=== PATIENT | female | born 1995 | race Caucasian/White ===

== ENCOUNTER 2019-01-10 21:56 | Emergency (ER) | payer MEDICAID ==
[~2019-01-10] VITALS: Ht 165.1 cm; Wt 48.0 kg
[2019-01-11 00:47] LABS: CLARITY URINE CLEAR (CLEAR); COLOR URINE YELLOW (YELLOW); KETONES URINE NEGATIVE (NEGATIVE); LEUKOCYTE ESTERASE URINE NEGATIVE (NEGATIVE); NITRITE URINE NEGATIVE (NEGATIVE); OCCULT BLOOD URINE 2+ (NEGATIVE); PROTEIN URINE NEGATIVE (NEGATIVE); SPECIFIC GRAVITY URINE 1.011 (1.005-1.030); UROBILINOGEN URINE 0.2 E.U./dL (0.2-1.0)
[2019-01-11 00:50] LABS: BASOPHILS % 0.5 % (0.0-2.0); EOSINOPHILS % 2.7 % (0.0-5.0); HEMOGLOBIN. 13.4 g/dL (12.0-16.0); LYMPHOCYTES % 27.5 % (20.0-50.0); MEAN CORPUSCULAR HEMOGLOBIN 31.3 pg (28.0-32.0); MEAN CORPUSCULAR VOLUME 91.1 fL (81.0-99.0); MEAN PLATELET VOLUME 7.7 fl (7.4-10.4); MONOCYTES % 10.7 % (2.0-8.0); NEUTROPHILS % 58.6 % (40.0-76.0); PLATELET 292 x1000/uL (130-400); RED BLOOD CELL COUNT 4.28 mill/uL (4.2-5.4); RED CELL DISTRIBUTION WIDTH 13.2 % (11.6-14.6)
[2019-01-11 00:54] LABS: CHLORIDE 105 mEq/L (98-107)
[2019-01-11 00:58] LABS: ETHANOL BLOOD < 10 mg/dL
[2019-01-11 01:06] LABS: *BARBITURATES SCREEN URINE NEGATIVE (NEGATIVE); *BENZODIAZEPINES SCREEN URINE NEGATIVE (NEGATIVE); METHADONE URINE SCREEN NEGATIVE (NEGATIVE)
[2019-01-11 01:07] LABS: CANNABINOID URINE SCREEN NEGATIVE (NEGATIVE); OPIATES URINE SCREEN NEGATIVE (NEGATIVE); PHENCYCLIDINE URINE SCREEN NEGATIVE (NEGATIVE)
[2019-01-11 01:13] LABS: *AMPHETAMINES SCREEN URINE NEGATIVE (NEGATIVE)
[2019-01-11 01:14] LABS: *COCAINE SCREEN URINE NEGATIVE (NEGATIVE)
[2019-01-11 02:18] VITALS: BP 108/68
== END 2019-01-11 02:48 | disposition home or self-care (01) ==
LOC: ER 21:56
DX: R94.6 Abnormal results of thyroid function studies (principal); R06.02 Shortness of breath; R00.2 Palpitations
CPT/HCPCS: 36415; 71045; 80305; 80320; 81003; 81025; 84439; 84443; 84484; 93005; 99284; G0480

== ENCOUNTER 2024-01-01 17:03 | Emergency (ER) | payer MEDICAID ==
[~2024-01-01] VITALS: Ht 165.1 cm; Wt 65.0 kg
[2024-01-01 17:05] VITALS: BP 128/81; PULSE 111; RESP 18; TEMP 98.4; O2SAT 99
[2024-01-01 17:28] LABS: CLARITY URINE CLEAR (CLEAR); COLOR URINE YELLOW (YELLOW); GLUCOSE URINE NEGATIVE (NEGATIVE); KETONES URINE NEGATIVE (NEGATIVE); LEUKOCYTE ESTERASE URINE 3+ (NEGATIVE); NITRITE URINE NEGATIVE (NEGATIVE); OCCULT BLOOD URINE 2+ (NEGATIVE); PROTEIN URINE NEGATIVE (NEGATIVE); SPECIFIC GRAVITY URINE 1.007 (1.005-1.030); UROBILINOGEN URINE 0.2 E.U./dL (0.2-1.0)
[2024-01-01 17:45] LABS: BACTERIA URINE 1+; SQUAMOUS EPITHELIAL CELL URINE 1+ /lpf (RARE/1+); WBC URINE 50-100 /hpf (0-2)
[2024-01-01] MEDS ORDERED: IBUPROFEN 600MG TABLET PO ONE (18:45)
[2024-01-01] MEDS ORDERED: ACETAMINOPHEN 325MG TABLET PO ONE (18:45)
[2024-01-01] MEDS: ACETAMINOPHEN 325MG TABLET PO NR (22:17)
[2024-01-01] MEDS: IBUPROFEN 600MG TABLET PO NR (22:17)
[2024-01-01] MEDS ORDERED: CRAN250T2 MT (23:26)
[2024-01-01] MEDS ORDERED: TOPUD MT (23:26)
[2024-01-01] MEDS ORDERED: IBUP-2029 MT (23:26)
[2024-01-01] MEDS ORDERED: NITR-87 MT (23:26)
== END 2024-01-02 01:13 | disposition home or self-care (01) ==
LOC: ER 17:03
DX: N12 Tubulo-interstitial nephritis, not specified as acute or chronic (principal); D64.9 Anemia, unspecified; Z79.899 Other long term (current) drug therapy
CPT/HCPCS: 76770; 81003; 81025; 87077; 87186; 99284